=== PATIENT | male | born 1975 | race African-American/Black ===

== ENCOUNTER → 2016-06-16 | Outpatient (CLI) | payer OTHER ==
--- NOTE | 2016-06-16 13:59 | NM ---
EXAMINATION TYPE: NM bone scan whole body DATE OF EXAM: 06/16/2016 1:40 PM COMPARISON: NONE HISTORY: Polyarthritis per order. Low back and right knee pain per patient, history of left knee repl acement 2015 Delayed whole-body scanning was performed following the injection of 27.5 mCi Tc 99m MDP. Images acq uired 3 hours post injection whole body and dedicated spot images of the pelvis, knees, and bilateral ankles and feet. FINDINGS: No suspicious radiotracer accumulation is seen in the osseous structures to suggest metastatic diseas e to the bone. Lucency from prosthesis left knee joint is present. Mild increase uptake at level of r ight knee joint is presumed product of degenerative change. No suspicious focal spinal uptake is seen . Contamination at the groin level is improved on spot imaging. Some asymmetric increased uptake righ t lateral malleolus could reflect degenerative change or trauma. Clinical and plain film correlation advised. IMPRESSION: As above
== END | disposition home or self-care (01) ==
LOC: RADNMMAIN 09:25
PROVIDERS: ATTEND Physical Medicine & Rehabilitation
DX: M13.0 Polyarthritis, unspecified (principal)
CPT/HCPCS: 78306; A9503

== ENCOUNTER 2017-08-15 13:10 | Emergency (ER) | payer OTHER ==
[2017-08-15 13:52] VITALS: BP 186/93; PULSE 100; RESP 18; TEMP 98.1
--- NOTE | 2017-08-15 14:23 | XR ---
EXAMINATION TYPE: XR shoulder complete RT DATE OF EXAM: 08/15/2017 CLINICAL HISTORY: Right shoulder numbness for 6 weeks TECHNIQUE: Three views of the right shoulder are obtained. COMPARISON: None. FINDINGS: There is no acute fracture/dislocation evident in the right shoulder. There is moderate adams int space loss and fairly with mild spurring at acromioclavicular joint. Glenohumeral joint is maint ained. The visualized ribs are intact and unremarkable. IMPRESSION: There is mild degenerative change right acromioclavicular joint.
--- NOTE | 2017-08-15 14:24 | XR ---
EXAMINATION TYPE: XR hand complete RT DATE OF EXAM: 08/15/2017 CLINICAL HISTORY: Right hand pain. Arm numbness for 6 months. TECHNIQUE: Frontal, lateral and oblique images of the right hand are obtained. COMPARISON: None. FINDINGS: There is no acute fracture/dislocation evident in the right hand. The joint spaces in the right hand appear within normal limits. There is shortened fourth metacarpal may be product of old tr auma. The overlying soft tissue appears unremarkable. IMPRESSION: There is no acute fracture or dislocation in the right hand.
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
== END 2017-08-15 15:00 | disposition home or self-care (01) ==
LOC: EC 13:10
DX: R20.2 Paresthesia of skin (principal); M19.011 Primary osteoarthritis, right shoulder; E11.9 Type 2 diabetes mellitus without complications; E78.5 Hyperlipidemia, unspecified; I10 Essential (primary) hypertension; M10.9 Gout, unspecified; Z87.891 Personal history of nicotine dependence; Z79.84 Long term (current) use of oral hypoglycemic drugs; Z79.891 Long term (current) use of opiate analgesic; Z79.899 Other long term (current) drug therapy
CPT/HCPCS: 99284

== ENCOUNTER 2017-12-13 06:39 | Day surgery (SDC) | payer OTHER ==
[2017-12-12 09:26] VITALS: BMI 39.3
[~2017-12-13 06:39] MED LIST: LIDOCAINE 1% 20 ML VIAL (10MG/ML) FOR IV START INTRADERMA PRN
[2017-12-13 07:15] VITALS: RESP 18; TEMP 98.1
[2017-12-13] MEDS: LACTATED RINGERS 1,000 ML IV SCH ×2 (07:17→07:29)
[2017-12-13 07:19] LABS: Glucose,Whole Blood 240 mg/dL (75-99)
[2017-12-13] MEDS ORDERED: PROPOFOL 10 MG/ML 20 ML VIAL IV ONE (07:30)
[2017-12-13] MEDS ORDERED: LIDOCAINE 1% INJ 10MG/ML (20 ML MDV) ONE (07:30)
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
[2017-12-13] MEDS ORDERED: IV FLUID CONTINUATION 1,000 ML IV ONE (07:54)
--- NOTE | 2017-12-13 07:56 | P.PCN ---
Date of Procedure: 12/13/17 Description of Procedure: PREOPERATIVE DIAGNOSIS: History of rectal bleeding Family history of colon cancer POSTOPERATIVE DIAGNOSIS: History of rectal bleeding Family history of colon cancer Complicated internal hemorrhoids, grade 2 External hemorrhoids, grade 3 OPERATION: Colonoscopy to the ileocecal valve and appendiceal orifice. SURGEON: Christi Edward MD. ANESTHESIA: MAC. INDICATIONS: The patient is a 42-year-old male who presents for with several month history of rectal bleeding. He presents for diagnostic colonoscopy. Benefits and risks were described and informed consent was obtained. DESCRIPTION OF PROCEDURE: The patient had undergone Gatorade, MiraLAX and Dulcolax prep. He had been brought into the operating room and laid in the left lateral decubitus position. The prostate was smooth and without abnormality. After adequate intravenous sedation, the rectum was examined with 2% lidocaine jelly. External hemorrhoids were encountered. The rectal tone was within normal limits. No lesions were palpated in the rectal vault. An Olympus colonoscope was advanced until the ileocecal valve and appendiceal orifice were clearly viewed. The prep was excellent with clear visualization of the mucosal folds. The scope was removed with visualization of each mucosal fold. No scattered diverticulosis was encountered. No colonic polyps were found. No evidence of focal colitis was found. Slow withdrawal of the scope demonstrated grade 2 internal hemorrhoids with recent inflammation. The colon was desufflated. The patient had tolerated the procedure well. Withdrawal time was over 6 minutes. FINDINGS: Internal hemorrhoids, grade 2 External prolapsed hemorrhoids, grade 3 No arteriovenous malformations No sigmoid diverticulosis No adenomatous polyps. No focal colitis. RECOMMENDATIONS: Lower endoscopy in 5 years, 2022 with high risk family history. Plan - Discharge Summary New Discharge Prescriptions: No Action HYDROcodone/APAP 10-325MG [[place] 10] 1 each PO TID PRN PRN Reason: Pain metFORMIN HCL 1,000 mg PO BID Gabapentin [Neurontin] 100 mg PO BID amLODIPine [Norvasc] 10 mg PO DAILY Metoprolol Tartrate [Lopressor] 50 mg PO BID Enalapril [Vasotec] 10 mg PO BID glipiZIDE [Glipizide] 5 mg PO AC-SUPPER Simvastatin 20 mg PO HS Ferrous Sulfate [Feosol] 325 mg PO DAILY Discharge Medication List Enalapril [Vasotec] 10 mg PO BID 09/25/14 [History] Gabapentin [Neurontin] 100 mg PO BID 09/25/14 [History] HYDROcodone/APAP 10-325MG [[place] 10] 1 each PO TID PRN 09/25/14 [History] Metoprolol Tartrate [Lopressor] 50 mg PO BID 09/25/14 [History] Simvastatin 20 mg PO HS 09/25/14 [History] amLODIPine [Norvasc] 10 mg PO DAILY 09/25/14 [History] glipiZIDE [Glipizide] 5 mg PO AC-SUPPER 09/25/14 [History] metFORMIN HCL 1,000 mg PO BID 09/25/14 [History] Ferrous Sulfate [Feosol] 325 mg PO DAILY 12/12/17 [History]
[2017-12-13 08:11] LABS: Glucose,Whole Blood 247 mg/dL (75-99)
[2017-12-13 08:20] VITALS: BP 123/82; PULSE 77
== END 2017-12-13 08:38 | disposition home or self-care (01) ==
LOC: ORWHC2ENDO 06:39
PROVIDERS: ATTEND Surgery Plastic and Reconstructive Surgery
DX: K64.1 Second degree hemorrhoids (principal); K64.2 Third degree hemorrhoids; Z80.0 Family history of malignant neoplasm of digestive organs; I10 Essential (primary) hypertension; E78.5 Hyperlipidemia, unspecified; E11.9 Type 2 diabetes mellitus without complications; Z87.891 Personal history of nicotine dependence; Z79.84 Long term (current) use of oral hypoglycemic drugs; Z79.3 Long term (current) use of hormonal contraceptives; Z79.899 Other long term (current) drug therapy; E66.01 Morbid (severe) obesity due to excess calories; Z68.39 Body mass index [BMI] 39.0-39.9, adult
CPT/HCPCS: 45378; J2001; J2704

== ENCOUNTER 2021-07-01 12:21 | Day surgery (SDC) | payer OTHER ==
[2021-06-30 13:19] VITALS: BMI 40.4
--- NOTE | 2021-06-30 16:30 | HP ---
HISTORY AND PHYSICAL DATE OF SURGERY: 07/01/2021 Bal Frances is a 46-year-old gentleman seen with progressive right knee pain. We discussed options for treatment. He elected to proceed with right knee arthroscopy. Consent regarding the procedure was obtained. Clearance was provided by Dr. Darby. PAST MEDICAL HISTORY: Insulin-dependent diabetes, hypertension. PAST SURGICAL HISTORY: None. DAILY MEDICATIONS: Insulin. ALLERGIES: NONE. SOCIAL HISTORY: He denies tobacco use. PHYSICAL EVALUATION OF THE RIGHT KNEE: Range of motion is zero to 130. Mild effusion. Tenderness along the lateral joint line. Positive lateral Nikia's. Ligaments stable. Hip rotation without pain. Distal neurovascular exam is intact. Radiographs of the right knee revealed some mild osteoarthritic changes. IMPRESSION: 1. Internal derangement of right knee with lateral meniscal tear. 2. Insulin-dependent diabetes. 3. Hypertension. PLAN: Right knee arthroscopy with partial meniscectomy and debridement. MMODL / IJN: [id number] /
[~2021-07-01 12:21] MED LIST changes: +DEXAMETHASONE SOD PHOSPHATE 4 MG/ML 1 ML VIAL IV ONE; +HYDROmorphone 0.5 MG/0.5 ML SYRINGE IVP PRN; +LACTATED RINGERS 1,000 ML IV SCH; -LIDOCAINE 1% 20 ML VIAL (10MG/ML) FOR IV START INTRADERMA PRN; +MIDAZOLAM 2 MG/2 ML VIAL IV PRN; +ONDANSETRON 4 MG/2 ML VIAL IVP ONE; +SCOPOLAMINE 1.5MG/72HR PATCH TRANSDERM ONE; +ceFAZolin 3 GM in SODIUM CHLORIDE 0.9% 100 ML IVPB PRN
[2021-07-01 13:21] LABS: Glucose,Whole Blood 198 mg/dL (75-99)
[2021-07-01] MEDS ORDERED: LABETALOL 5 MG/ML VIAL MDV ONE (14:46)
[2021-07-01] MEDS ORDERED: SUCCINYLCHOLINE CHLORIDE VIAL 200 MG/10 ML VIAL IV ONE (14:46)
[2021-07-01] MEDS ORDERED: fentaNYL (PF) 50 MCG/ML 2 ML AMP ONE (14:46)
[2021-07-01] MEDS ORDERED: LIDOCAINE 1% INJ 10MG/ML (20 ML MDV) ONE (14:46)
[2021-07-01] MEDS ORDERED: PROPOFOL 10 MG/ML 20 ML VIAL IV ONE (14:46)
[2021-07-01] MEDS ORDERED: HYDROmorphone (PF) 1 MG/ML ONE (14:46)
[2021-07-01] MEDS ORDERED: MIDAZOLAM 2 MG/2 ML VIAL ONE (14:46)
[2021-07-01] MEDS ORDERED: BUPIVACAINE (PF) 0.25% 30 ML VIAL SQ ONE (15:13)
[2021-07-01] MEDS ORDERED: LACTATED RINGERS 1,000 ML IV ONE (15:27)
--- NOTE | 2021-07-01 15:49 | P.OP ---
Date of Procedure: 07/01/21 Preoperative Diagnosis: Internal derangement right knee Postoperative Diagnosis: 1. Tear medial and lateral meniscus right knee 2. Reactive synovitis medial, lateral and suprapatellar compartments right knee Procedure(s) Performed: 1. Arthroscopic partial medial and lateral meniscectomy right knee 2. Arthroscopic partial synovectomy medial, lateral and suprapatellar compartments right knee Anesthesia: GETA, local Surgeon: Fidel Antoine Estimated Blood Loss (ml): 6 Pathology: none sent Condition: stable Disposition: PACU Indications for Procedure: 46-year-old patient seen with progressive right knee pain. After treatment options were discussed, he elected to proceed with arthroscopy. Operative Findings: see description of procedure Description of Procedure: Patient was taken to the operative suite. Patient underwent a general anesthetic by the department of anesthesia. Patient was given preoperative antibiotics. The right lower extremity was placed in a well-padded arthroscopic leg menjivar. The right leg was prepped and draped in the normal sterile orthopedic fashion. A lateral parapatellar and suprapatellar incision was made. Trochars were inserted. Arthroscopy was initiated. Suprapatellar pouch revealed diffuse thick reactive synovitis. The patellofemoral joint appeared to articulate congruently. There was grade 1 chondromalacia of the patellofemoral joint with no osteochondral tears present. The scope was guided into the medial gutter. No loose bodies or plica were identified. The scope was then guided into the medial compartment. A medial parapatellar incision was made. Trocar inserted followed by probe. There was a radial tear anterior horn medial meniscus. There was some thick reactive synovitis in the areas well. The mid body and posterior horn were both stable. There was no chondromalacia. I performed a partial medial meniscectomy. I performed a partial synovectomy. Residual anterior horn medial meniscus appeared stable. There was good decompression of the synovitis. Scope and probe were then guided into the intercondylar notch. Cruciates were identified, probed and found to be stable. The scope and probe were then guided into lateral compartment. There was a radial tear mid body lateral meniscus. There was some thick reactive some-itis anteriorly. There was no significant chondromalacia present. I performed a partial lateral meniscectomy getting down to stable meniscal tissue. I performed a partial synovectomy decompressing the reactive synovitis. The residual meniscus was stable. There was good decompression of synovitis. The scope was in guided back into the suprapatellar compartment. I introduced a motorized shaver into the suprapatellar compartment. I performed a partial synovectomy. Shaver was removed. There was good decompression synovitis. I took one more look around the entire knee, no residual debris. Instruments were now removed from the joint. The joint was infiltrated with .25% Marcaine. Steri-Strips were applied to the portal sites. Sterile dressings were applied. The patient was placed into a VASYL hose. No tourniquet was utilized. The patient was awakened, transferred to a bed and taken to recovery stable satisfactory condition.
[2021-07-01 15:54] VITALS: TEMP 97
[2021-07-01] MEDS ORDERED: KETOROLAC 15 MG/ML 1 ML VIAL IVP ONE (15:58)
[2021-07-01 16:14] LABS: Glucose,Whole Blood 212 mg/dL (75-99)
[2021-07-01 16:51] VITALS: RESP 16
[2021-07-01] MEDS ORDERED: HYDROcodone/APAP 5-325MG 1 EACH TAB ONE (17:02)
[2021-07-01] MEDS ORDERED: HYDROcodone/APAP 5-325MG 1 EACH TAB PO ONE (17:03)
[2021-07-01 17:31] VITALS: BP 138/74; PULSE 85
== END 2021-07-01 17:34 | disposition home or self-care (01) ==
LOC: OR 12:21
PROVIDERS: ATTEND Orthopaedic Surgery
DX: S83.281A Other tear of lateral meniscus, current injury, right knee, initial encounter (principal); E11.9 Type 2 diabetes mellitus without complications; I10 Essential (primary) hypertension
CPT/HCPCS: 29880; 29876; J2250; J0330; J0690; J2001; J3010; J1170 ×2; J1885; J2704

== ENCOUNTER → 2021-11-18 | Outpatient (CLI) | payer OTHER ==
--- NOTE | 2021-11-25 11:13 | US ---
EXAMINATION TYPE: US MSK left shoulder complete DATE OF EXAM: 11/25/2021 COMPARISON: NONE CLINICAL HISTORY: 46-year-old male M25.512 PAIN IN SHOULDER after injury. TECHNIQUE: Multiple sonographic images of the left shoulder are obtained without and with dynamic man euvers. FINDINGS: The intracapsular portion of the long head biceps tendon is thickened and mildly inhomogeneous. The e xtracapsular portion is visualized along the bicipital groove but there is [id number] diffuse s inonasal fluid, some associated hyperemia, and some mild synovial irregularity. Subscapularis tendon is grossly intact. Some degenerative capsular hypertrophy at the acromioclavicular joint. Both supraspinatus and infraspinatus tendons are intact without tear. Preserved fall and echogenicity of their muscle bellies. No fluid within the subacromial/subdeltoid bursa. Smooth motion of the supraspinatus tendon below the acromion. No effusion within the posterior recess of the glenohumeral joint. The posterior labrum shows no disc rete abnormality. The spinal glenoid groove is clear. Additional general scanning along the posterior aspect of the shoulder shows no discrete abnormality of the superficial tissues. IMPRESSION: 1. Long head biceps tendinosis along with a moderate tenosynovitis. Consider a targeted diagnostic an d therapeutic analgesic injection. 2. No rotator cuff tear or muscle atrophy. No bursal effusion.
== END | disposition home or self-care (01) ==
LOC: RADUSWWP 13:59
PROVIDERS: ATTEND Orthopaedic Surgery
DX: M65.812 Other synovitis and tenosynovitis, left shoulder (principal)

== ENCOUNTER 2023-08-02 11:08 | Day surgery (SDC) | payer OTHER ==
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
[~2023-08-02 11:08] MED LIST changes: -DEXAMETHASONE SOD PHOSPHATE 4 MG/ML 1 ML VIAL IV ONE; -LACTATED RINGERS 1,000 ML IV SCH; -MIDAZOLAM 2 MG/2 ML VIAL IV PRN; -ONDANSETRON 4 MG/2 ML VIAL IVP ONE; +Pre Op ABX Message 1 EACH MISC MISCELLANE ONE; -SCOPOLAMINE 1.5MG/72HR PATCH TRANSDERM ONE; -ceFAZolin 3 GM in SODIUM CHLORIDE 0.9% 100 ML IVPB PRN
[2023-08-02] MEDS: LACTATED RINGERS 1,000 ML IV SCH (12:01)
[2023-08-02 12:15] LABS: Glucose,Whole Blood 109 mg/dL (70-110)
[2023-08-02] MEDS: DEXAMETHASONE SOD PHOSPHATE 4 MG/ML 1 ML VIAL IV ONE (12:16)
[2023-08-02] MEDS: ONDANSETRON 4 MG/2 ML VIAL IVP ONE (12:16)
[2023-08-02 12:23] VITALS: RESP 16; TEMP 97.4
[2023-08-02] MEDS ORDERED: MIDAZOLAM 2 MG/2 ML VIAL ONE (12:34)
[2023-08-02] MEDS ORDERED: PROPOFOL 10 MG/ML 20 ML VIAL IV ONE (12:34)
[2023-08-02] MEDS ORDERED: fentaNYL (PF) 50 MCG/ML 2 ML AMP ONE (12:34)
[2023-08-02] MEDS: BUPIVACAINE (PF) 0.5% 30 ML VIAL SQ ONE ×4 (12:36→12:41)
[2023-08-02] MEDS: LIDOCAINE 2% INJ 20 MG/ML SQ ONE ×2 (12:36→12:41)
[2023-08-02] MEDS ORDERED: methylPREDNISolone ACETATE 40 MG/ML 1 ML VIAL ONE (12:43)
[2023-08-02] MEDS: methylPREDNISolone ACETATE 40 MG/ML 1 ML VIAL INJ ONE (12:43)
--- NOTE | 2023-08-02 13:05 | P.OP ---
Date of Procedure: 08/02/23 Preoperative Diagnosis: 1.) Left middle finger trigger finger 2.) Left thumb trigger finger 3.) Right middle finger trigger finger Postoperative Diagnosis: 1.) Left middle finger trigger finger 2.) Left thumb trigger finger 3.) Right middle finger trigger finger Procedure(s) Performed: 1.) Left middle finger trigger finger A1 sarah release 2.) Left thumb trigger finger A1 sarah release 3.) Right middle finger trigger finger steroid injection Surgeon: Jerry Bello Semaphore Operator #1: Rigo Giron Estimated Blood Loss (ml): 0 Pathology: none sent Condition: stable Disposition: PACU Description of Procedure: This is a 48 year old male who presents today for a left middle and thumb trigger finger A1 sarah release after having failed conservative treatment and a right middle finger trigger finger steroid injection. Risks and benefits of surgery were discussed with the patient including bleeding, damage to surrounding tissue, infection, need for further surgery as well as risks of anesthesia including pulmonary embolism and even and the patient wished to proceed with surgical intervention. The patient was seen in the pre-operative area by myself. Consent and H&P were completed and updated. The correct extremity was marked in the pre-operative area by myself and all other questions were answered. Operative Narrative: The patient was brought to the operating room by the department of anesthesia. They remained on the portable stretcher and a rolling hand table was brought to the side of the operative extremity. Pre-operative time out was performed indicating the correct patient, procedure and laterality. All in the room agreed. Pre-operative antibiotics were given prior to skin incision. The patient was then drifted off to sleep by the department of anesthesia. MAC anesthesia was utilized and a 50:50 mixture of 1% Lidocaine and 0.5% bupivacaine was injected into the subcutaneous tissues of the left palmar skin, 8ccs total. A 50:50 mixture of .5ml and .5ml of depomedrol and 0.5% bupivicaine was injected into the right middle finger A1 sarah without complication, band aid was placed. A nonsterile tourniquet was then applied to the operative extremity and the left upper extremity was then prepped and draped in normal sterile fashion. The operative extremity was the exsanguinated with an esmarch bandage and the tourniquet was inflated to 250mmHg. Oblique incision was made at the base of the middle finger. Blunt dissection was taken down to the level of the A1 sarah. Ragnell retractors were placed both radially and ulnarly to protect neurovascular bundles. Littler tenotomy scissors were then used to release the A1 sarah from proximal to distal under direct visualization. Proximal fascial attachments were released. The tendon was then taken through range of motion and no locking or catching was appreciated. Transverse incision was made at the base of the thumb. Blunt dissection was taken down to the level of the A1 sarah. Ragnell retractors were placed both radially and ulnarly to protect neurovascular bundles. Littler tenotomy scissors were then used to release the A1 sarah from proximal to distal under direct visualization. Proximal fascial attachments were released. The tendon was then taken through range of motion and no locking or catching was appreciated. The wound was then closed with interrupted 4-0 nylon sutures in a horizontal mattress fashion. Sterile dressing consisting of adaptic, 4x4s, webril, and an merna wrap was applied. Tourniquet was let down and the hand was immediately well perfused. The patient was then woken by the department of anesthesia and transferred to PACU in stable condition. Rigo SILVA was present to assist in retraction and protection of neurovascular structures. Jerry Bello D.O. Orthopedic Hand/Upper Extremity Surgeon
[2023-08-02 13:15] LABS: Glucose,Whole Blood 107 mg/dL (70-110)
[2023-08-02 13:53] VITALS: BP 117/79; PULSE 90
== END 2023-08-02 13:59 | disposition home or self-care (01) ==
LOC: OR 11:08
PROVIDERS: ATTEND Orthopaedic Surgery Hand Surgery
DX: M65.312 Trigger thumb, left thumb (principal); M65.332 Trigger finger, left middle finger; M65.331 Trigger finger, right middle finger; K21.9 Gastro-esophageal reflux disease without esophagitis; I10 Essential (primary) hypertension; E78.5 Hyperlipidemia, unspecified; E11.9 Type 2 diabetes mellitus without complications; M19.90 Unspecified osteoarthritis, unspecified site; Z79.84 Long term (current) use of oral hypoglycemic drugs; Z87.891 Personal history of nicotine dependence; Z91.030 Bee allergy status
CPT/HCPCS: 26055 ×2; 20552; J2001; J2250; J1030; J1100; J2405; J3010; J2704; J0665

== ENCOUNTER → 2024-11-20 | Outpatient (CLI) | payer OTHER ==
--- NOTE | 2024-11-20 13:56 | XR ---
EXAMINATION TYPE: XR chest 2V DATE OF EXAM: 11/20/2024 1:48 PM COMPARISON: None. CLINICAL INDICATION: Male, 49 years old with history of SHORTNESS OF BREATH, TECHNIQUE: Frontal and lateral views of the chest are obtained. FINDINGS: There is no focal air space opacity, pleural effusion, or pneumothorax seen. The cardiac silhouette size is within normal limits. The osseous structures are intact. IMPRESSION: No acute cardiopulmonary process. [facility], , 11/20/2024 1:53 PM
== END | disposition home or self-care (01) ==
LOC: RADXRMAIN 13:27
PROVIDERS: ATTEND Internal Medicine
DX: R06.02 Shortness of breath (principal)
CPT/HCPCS: 71046